=== PATIENT | female | born 2000 | race African-American/Black ===

== ENCOUNTER 2024-02-01 11:24 | Emergency (ER) | payer BC ==
[~2024-02-01] VITALS: Ht 152.4 cm; Wt 86.5 kg
[2024-02-01] MEDS: predniSONE 20 MG TAB PO ONE (16:25)
[2024-02-01] MEDS: diphenhydrAMINE 50MG CAP PO ONE (16:25)
[2024-02-01] MEDS: ALBUTEROL SULFATE 2.5MG/0.5ML INH NEB SOLN INH ONE (16:28)
[2024-02-01] MEDS ORDERED: CETI-24 PO (17:14)
[2024-02-01] MEDS ORDERED: PRED20TA PO (17:14)
[2024-02-01 17:26] VITALS: BP 131/83; TEMP 98.1; O2SAT 98
== END 2024-02-01 17:27 | disposition home or self-care (01) ==
LOC: M ED 11:24 → EDBD 11:24 → M ED 17:27
DX: J45.909 Unspecified asthma, uncomplicated (principal); L50.9 Urticaria, unspecified; J42 Unspecified chronic bronchitis; F17.200 Nicotine dependence, unspecified, uncomplicated
CPT/HCPCS: 94640; 99283; J7512

== ENCOUNTER 2025-02-27 13:40 | Emergency (ER) | payer BC, OTHER ==
[~2025-02-27] VITALS: Ht 152.4 cm; Wt 91.8 kg
[~2025-02-27 13:40] MED LIST: CETI-24 PO; PRED20TA PO
[2025-02-27 14:20] LABS: BASO % 0.5 % (0.0-1.0); EOS # 0.1 10^3/uL (0.0-0.5); EOS % 2.2 % (0.0-3.0); HEMATOCRIT 39.4 % (36.0-47.0); HEMOGLOBIN 12.9 g/dl (12.0-15.5); LYMPH # 0.9 10^3/uL (1.5-5.0); LYMPH % 15.4 % (24.0-44.0); MEAN CORPUSCULAR HEMOGLOBIN 29.3 pg (27.0-33.0); MEAN CORPUSCULAR HGB CONC 32.7 g/dl (32.0-36.5); MEAN CORPUSCULAR VOLUME 89.3 fl (80.0-96.0); MONO # 0.5 10^3/uL (0.0-0.8); MONO % 8.4 % (2.0-8.0); NEUTROPHILS # 4.3 10^3/uL (1.5-8.5); NEUTROPHILS % 73.3 % (36.0-66.0); PLATELET COUNT, AUTOMATED 306 10^3/uL (150-450); RED BLOOD COUNT 4.41 10^6/uL (4.00-5.40); WHITE BLOOD COUNT 5.9 10^3/uL (4.0-10.0)
[2025-02-27 14:50] LABS: ALBUMIN 3.6 G/DL (3.2-5.2); ALKALINE PHOSPHATASE 64 U/L (35-104); ALT/SGPT 18 U/L (7.0-40); AST/SGOT 14 U/L (<34); BILIRUBIN,DIRECT 0.3 MG/DL (<0.4); BILIRUBIN,TOTAL 0.9 MG/DL (0.3-1.2); BLOOD UREA NITROGEN 9 MG/DL (9-23); CALCIUM LEVEL 8.9 MG/DL (8.5-10.1); CARBON DIOXIDE LEVEL 26 MMOL/L (20-31); CHLORIDE LEVEL 107 MMOL/L (98-107); CREATININE FOR GFR 0.76 MG/DL (0.55-1.30); GLOMERULAR FILTRATION RATE > 60.0 (>60); GLUCOSE, FASTING 108 MG/DL (60-100); POTASSIUM SERUM 3.5 MMOL/L (3.5-5.1); SODIUM LEVEL 140 MMOL/L (136-145); TOTAL PROTEIN 7.4 G/DL (5.7-8.2)
[2025-02-27 14:53] LABS: HCG, SERUM QUALITATIVE NEGATIVE (NEGATIVE)
[2025-02-27 15:43] LABS: KETONE, URINE AUTO RFX NEGATIVE (NEGATIVE); LEUKOCYTE ESTERASE UR AUTO RFX NEGATIVE (NEGATIVE); MUCUS, URINE RFX LARGE (NEGATIVE); NITRITE, URINE AUTO RFX NEGATIVE (NEGATIVE); RBC, URINE AUTO RFX 1 /HPF (0-3); SQUAM EPITHELIAL CELL UR AURFX 4 /HPF (0-6); WBC, URINE AUTO RFX 1 /HPF (0-3)
[2025-02-27 16:29] VITALS: TEMP 97.8
[2025-02-27] MEDS ORDERED: ONDA-282 PO (18:50)
[2025-02-27 18:56] VITALS: BP 138/78; O2SAT 99
== END 2025-02-27 18:57 | disposition home or self-care (01) ==
LOC: M ED 13:40
DX: A08.11 Acute gastroenteropathy due to Norwalk agent (principal); R11.2 Nausea with vomiting, unspecified; R19.7 Diarrhea, unspecified; Z79.83 Long term (current) use of bisphosphonates